=== PATIENT | male | born 1995 | race African-American/Black ===

== ENCOUNTER 2017-12-07 19:16 | Emergency (ER) | payer SELFPAY ==
[~2017-12-07] VITALS: Ht 175.3 cm; Wt 65.8 kg
[2017-12-07 19:22] VITALS: BP 141/96
--- NOTE | 2017-12-07 19:45 | NUR ---
Patient brought in by family with c/c of left upper extremity swelling x1 month, pain x2 weeks, starting in elbow, radiating to forearm to wrist, dull in nature. Increase in pain upon ROM, No redness noted.
== END 2017-12-07 20:02 | disposition home or self-care (01) ==
LOC: ER 19:18
DX: G56.92 Unspecified mononeuropathy of left upper limb (principal); Z89.512 Acquired absence of left leg below knee; Z89.511 Acquired absence of right leg below knee
CPT/HCPCS: 29125; 99283; A4606; Z7610